=== PATIENT | male | born 1940 | race Caucasian/White ===

== ENCOUNTER 2018-03-03 08:00 | Outpatient (CLI) | payer MEDICARE, BC ==
[2018-03-03 13:15] LABS: BASOPHILS % (AUTO) 0.6 %; EOSINOPHILS # (AUTO) 0.1 10^3/uL (0.0-0.7); EOSINOPHILS % (AUTO) 1.5 %; LYMPHOCYTES % (AUTO) 31.9 %; MEAN CORPUSCULAR HEMOGLOBIN 32.1 pg (27.0-31.0); MEAN CORPUSCULAR HGB CONC 34.5 g/dL (32.0-36.0); MEAN PLATELET VOLUME 8.9 fL (7.4-11.4); MONOCYTES # (AUTO) 0.5 10^3/uL (0.0-1.0); MONOCYTES % (AUTO) 7.8 %; NEUTROPHILS # (AUTO) 3.7 10^3/uL (1.5-6.6); NEUTROPHILS % (AUTO) 58.2 %; PLT - PLATELET COUNT 162 10^3/uL (130-450); RED BLOOD COUNT 5.31 10^6/uL (4.70-6.10); RED CELL DISTRIBUTION WIDTH 13.5 % (12.0-15.0); WHITE BLOOD COUNT 6.4 x10^3/uL (4.8-10.8)
[2018-03-03 13:50] LABS: PSA TOTAL 3.5 ng/mL (0.000-2.000)
[2018-03-03 13:51] LABS: ALBUMIN 4.4 g/dL (3.2-5.5); ALBUMIN/GLOBULIN RATIO 1.5 (1.0-2.2); ALKALINE PHOSPHATASE 59 IU/L (42-121); ALT ALANINE AMINOTRANSFERASE 26 IU/L (10-60); AST ASPARTATE AMINOTRANSFERASE 20 IU/L (10-42); BILIRUBIN,TOTAL 1.1 mg/dL (0.2-1.0); BUN - BLOOD UREA NITROGEN 17 mg/dL (6-20); CALCIUM 9.3 mg/dL (8.5-10.3); CARBON DIOXIDE - CO2 28 mmol/L (21-32); CHLORIDE 104 mmol/L (101-111); CHOL/HDL RATIO 3.9 (<5.0); CHOLESTEROL 221 mg/dL; GFR - MDRD 72 (>89); GLUCOSE 104 mg/dL (70-100); HDL CHOLESTEROL 56 mg/dL; LDL CHOLESTEROL,CALCULATED 145 mg/dL; LDL/HDL RATIO 2.6 (<3.6); PSA FREE 1.29 ng/mL (0.16-2.81); SODIUM 138 mmol/L (135-145); TOTAL PROTEIN 7.4 g/dL (6.7-8.2); VLDL CHOLESTEROL 20 mg/dL
== END 2018-03-03 08:01 | disposition home or self-care (01) ==
LOC: LAB.WCP 08:00
PROVIDERS: ATTEND Physician Assistant
DX: R53.83 Other fatigue (principal); E78.5 Hyperlipidemia, unspecified; G60.9 Hereditary and idiopathic neuropathy, unspecified; N40.0 Benign prostatic hyperplasia without lower urinary tract symptoms
CPT/HCPCS: 36415; 80053; 80061; 82306; 82607; 82746; 83721; 84154; 85025

== ENCOUNTER 2018-04-14 08:16 | Outpatient (CLI) | payer MEDICARE, BC ==
--- NOTE | 2018-04-14 13:43 | Ultrasound Report ---
Reason: LIVER CYST Procedure Date: 04/14/2018 Accession Number: [id number] / [id number] Procedure: US - Abdomen Complete CPT Code: FULL RESULT: EXAM: ABDOMEN ULTRASOUND EXAM DATE: 04/14/2018 09:12 AM. CLINICAL HISTORY: LIVER CYST. COMPARISON: CARDIAC TECHNIQUE: Real-time scanning was performed with static images obtained. FINDINGS: Liver: Normal in size and echotexture. Right liver lobe measured 16.4 cm. There is a cluster of anechoic cysts versus cyst with thin septations and lobulated contour within ventral left liver lobe, overall measuring 3.2 x 2.0 x 2.4 cm with increased through transmission. No vascularity or thick septations evident within the cyst. Main portal vein flow: Hepatopetal. Gallbladder: Prior cholecystectomy. Biliary System: Common bile duct measures 6 mm. 2 mm common hepatic duct. No intrahepatic or extrahepatic ductal dilatation. Pancreas: Visualized portion is unremarkable. Kidneys: Right: 10.3 cm longitudinally. Normal. No contour-deforming mass, stones, or hydronephrosis. Left: 11.2 cm longitudinally. Normal. No contour-deforming mass, stones, or hydronephrosis. Spleen: 10.4 cm, 171 cc. Normal in size and echotexture. Aorta and Inferior Vena Cava: Unremarkable. Other: None. IMPRESSION: 1. Cluster of simple cysts versus cyst with thin septations and lobulated contour within ventral left liver lobe. No thick septations or vascularity demonstrated. 2. Prior cholecystectomy. No biliary ductal dilatation. [facility]
== END 2018-04-14 08:17 | disposition home or self-care (01) ==
LOC: DI 08:16
PROVIDERS: ATTEND Physician Assistant
DX: K76.89 Other specified diseases of liver (principal); Z90.49 Acquired absence of other specified parts of digestive tract
CPT/HCPCS: 76700

== ENCOUNTER 2018-06-08 07:17 | Outpatient (CLI) | payer MEDICARE, BC ==
[2018-06-08 13:27] LABS: PSA FREE 1.18 ng/mL (0.16-2.81)
[2018-06-08 13:28] LABS: PSA TOTAL 3.02 ng/mL (0.000-2.000)
[2018-06-09 11:12] LABS: HEPATITIS C ANTIBODY NON-REACTIVE (NON-REACTIVE)
== END 2018-06-08 23:59 | disposition home or self-care (01) ==
LOC: LAB.WCP 07:17
PROVIDERS: ATTEND Physician Assistant
DX: N40.0 Benign prostatic hyperplasia without lower urinary tract symptoms (principal); R68.82 Decreased libido; M25.511 Pain in right shoulder; Z11.59 Encounter for screening for other viral diseases
CPT/HCPCS: 36415; 84153; 84154; 84403; 86140; 86803